=== PATIENT | male | born 1945 | race Caucasian/White ===

== ENCOUNTER → 2021-04-04 | Outpatient (CLI) | payer MEDICARE ==
[2016-02-06 17:00] VITALS: BP 145/83
[~2021-04-04] MED LIST: AMLO-186 PO; ASPI325T8 PO; ATOR40TA59 PO; BENA1TAB44 PO; BENA20TA84 PO; CELE200C PO; CHOL500021 PO; DONE10TA61 PO; DOXA8TAB2 PO; DULA0.75 SQ; FLUT9.9S NS; GADOTERATE 5 MMOL/10ML VIAL. IVP ONE; LEXAPRO20 MG PO; LORA0.5T96 PO; MIRT-36 PO; MIRT30TA2 PO; SERT50TA PO; TRIA1TAB PO
--- NOTE | 2021-04-05 10:13 | KCIC ---
MRI BRAIN WO+W Date: 04/04/2021 3:45 PM Indication: RULE OUT VASCULAR OR STRUCTURAL ETIOLOGIES OF COGNITIVE DYSFUNCTION. DEMENTIA. 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 CT 05/12/2012 Technique: Multiplanar multisequence MRI of the brain was performed with and without intravenous cont rast using the standard protocol. 20 cc Clariscan contrast was administered intravenously during the exam. Findings: No acute infarct. No acute or chronic hemorrhage. The ventricles are normal in size and configuration without hydrocephalus. Minimal scattered FLAIR hyperintensities in the subcortical and periventricul ar deep white matter, a nonspecific finding, appropriate for patient age. Mild generalized cerebral v olume loss. No abnormal enhancement. The scalp and calvarium are normal. The pituitary and sella are normal. No Chiari malformation. The v isualized upper cervical spine is normal. Stable lesion along the medial aspect of the left orbit which extends into the ethmoid sinus. The vis ualized paranasal sinuses are clear. The mastoid air cells are clear. Normal flow voids within the vertebral, basilar, and internal carotid arteries indicating patency. IMPRESSION: 1. No acute intracranial process. 2. Minimal scattered FLAIR hyperintensities in the subcortical and periventricular deep white matter, a nonspecific finding, appropriate for patient age. Mild generalized cerebral volume loss. 3. Left medial orbit/ethmoid sinus lesion is stable since exam of 2012, consistent with patient's pro vided history of orbital lymphangioma. Electronically signed by: Jose Ferris MD (04/05/2021 10:11 AM) [id number]
== END ==
LOC: KCIC MRI 15:20
PROVIDERS: ATTEND Nurse Practitioner Family
DX: G93.89 Other specified disorders of brain (principal); F03.90 Unspecified dementia, unspecified severity, without behavioral disturbance, psychotic disturbance, mood disturbance, and anxiety
CPT/HCPCS: 70553; 82565; A9575